=== PATIENT | female | born 1975 | race Two or more races ===

== ENCOUNTER 2023-06-03 02:12 | Outpatient (CLI) | payer MEDICAID | END 2023-06-03 23:59 | disposition critical access hospital (66) | LOC: EMS 02:12 | DX: R10.9 Unspecified abdominal pain (principal); R11.0 Nausea; R19.7 Diarrhea, unspecified | CPT/HCPCS: A0425; A0427; A0999 ==

== ENCOUNTER 2023-06-03 02:37 | Observation (INO) | payer MEDICAID ==
--- NOTE | 2023-06-03 03:27 | ED Physician Documentation ---
PD HPI NVD - Stated complaint Stated Complaint: ABD PX/NAUSEA - Chief complaint Chief Complaint: Abd Pain - History obtained from History obtained from: Patient - Additonal information Additional information: HPI from patient. Patient complains of nausea, vomiting, and diarrhea. This started at approximately 10 PM tonight without inciting event. She denies any pain including abdominal pain. Denies fever. Denies recent antibiotics. No recent travel. Review of Systems Constitutional: reports: Sweats. denies: Fever, Chills Cardiac: reports: Reviewed and negative Respiratory: reports: Reviewed and negative GI: reports: Nausea, Vomiting, Diarrhea. denies: Abdominal Pain, Constipation, Hematemesis, Bloody / black stool : denies: Dysuria, Frequency, Now EGA PD PAST MEDICAL HISTORY - Past Medical History Past Medical History: Yes Respiratory: Asthma Endocrine/Autoimmune: Type 2 diabetes Psych: Anxiety, Post traumatic stress disorder - Past Surgical History Past Surgical History: Yes General: Cholecystectomy, Other - Present Medications Home Medications: Ambulatory Orders Medication Instructions Recorded Confirmed Albuterol Sulfate [Proair 90 mcg IH Q4HR PRN 06/03/23 06/03/23 Respiclick] Alprazolam [Xanax] 0.5 mg PO DAILY 06/03/23 06/03/23 Atorvastatin Calcium 20 mg PO HS 06/03/23 06/03/23 Calcium Carbonate/Vitamin D3 1 tab PO BID 06/03/23 06/03/23 [Calcium 600 mg-Vit D3 10Mcg Tb] Escitalopram [Lexapro] 10 mg PO DAILY 06/03/23 06/03/23 Levothyroxine [Synthroid] 25 mcg PO QDAC 06/03/23 06/03/23 Liraglutide [Victoza 2-Juan F] 1.8 mg SQ DAILY 06/03/23 06/03/23 Montelukast Sodium 10 mg PO DAILY 06/03/23 06/03/23 Pioglitazone HCl [Actos] 30 mg PO DAILY 06/03/23 06/03/23 Prazosin [Minipress] 1 mg PO QPM 06/03/23 06/03/23 hydroCHLOROthiazide [Hydrodiuril] 12.5 mg PO DAILY 06/03/23 06/03/23 methocarbamoL [Methocarbamol] 750 mg PO Q6HR PRN 06/03/23 06/03/23 - Allergies Allergies/Adverse Reactions: Allergies Allergy/AdvReac Type Severity Reaction Status Date / Time ephedrine [From Tedral] Allergy Anaphylaxis Verified 06/03/23 03:01 phenobarbital [From Tedral] Allergy Anaphylaxis Verified 06/03/23 03:01 theophylline [From Tedral] Allergy Anaphylaxis Verified 06/03/23 03:01 ondansetron [From Zofran] AdvReac Itching Verified 06/03/23 03:01 - Social History Does the pt smoke?: No Smoking Status: Former smoker Does the pt drink ETOH?: No Substance Use and Type: Marijuana PD ED PE NORMAL - Vitals Vital signs reviewed: Yes - General General: Alert and oriented X 3, Well developed/nourished, Other (appears uncomfortable; she says she feels extremely nauseaus and repeatedly asking for medication to stop the nausea) - HEENT HEENT: Moist mucous membranes - Neck Neck: Supple, no meningeal sign - Cardiac Cardiac: RRR, No murmur - Respiratory Respiratory: No respiratory distress, Clear bilaterally - Abdomen Abdomen: Soft, Non tender, Non distended - Derm Derm: Normal color, Warm and dry Results - Vitals Vitals: Vital Signs - 24 hr 06/03/23 06/03/23 06/03/23 02:55 03:00 05:01 Temperature 35.6 C L Heart Rate 90 82 88 Respiratory 16 16 80 H Rate Blood Pressure 186/102 H 170/93 H 149/76 H O2 Saturation 97 94 92 06/03/23 06/03/23 06/03/23 05:52 06:31 07:48 Temperature 36.2 C L Heart Rate 87 93 90 Respiratory 16 16 20 Rate Blood Pressure 130/77 145/89 H 152/85 H O2 Saturation 98 97 97 Oxygen O2 Source Room air - Labs Labs: Laboratory Tests 06/03/23 06/03/23 06/03/23 03:42 03:42 03:53 WBC 14.1 H RBC 4.84 Hgb 14.2 Hct 43.5 MCV 89.9 MCH 29.3 MCHC 32.6 RDW 13.3 Plt Count 230 MPV 9.8 Neut # (Auto) 12.2 H Lymph # (Auto) 1.1 L [place] # (Auto) 0.7 Eos # (Auto) 0.1 Baso # (Auto) 0.0 Absolute Nucleated RBC 0.00 Nucleated RBC % 0.0 Sodium Potassium Chloride Carbon Dioxide Anion Gap BUN Creatinine Estimated GFR (MDRD) Glucose Calcium Total Bilirubin AST ALT Alkaline Phosphatase Total Protein Albumin Globulin Albumin/Globulin Ratio Lipase Urine Color YELLOW Urine Clarity CLEAR Urine pH 5.5 Ur Specific Crary >=1.030 H Urine Protein NEGATIVE Urine Glucose (UA) >=1000 H Urine Ketones 15 H Urine Occult Blood SMALL H Urine Nitrite NEGATIVE Urine Bilirubin NEGATIVE Urine Urobilinogen 0.2 (NORMAL) Ur Leukocyte Esterase NEGATIVE Urine RBC 0-5 Urine WBC 0-3 Ur Squamous Epith Cells MOD Squamous H Urine Bacteria Rare Ur Microscopic Review INDICATED Urine Culture Comments NOT INDICATED Urine HCG, Qual NEGATIVE Stl C. diff Tox B Gene NEGATIVE 06/03/23 03:53 WBC RBC Hgb Hct MCV MCH MCHC RDW Plt Count MPV Neut # (Auto) Lymph # (Auto) [place] # (Auto) Eos # (Auto) Baso # (Auto) Absolute Nucleated RBC Nucleated RBC % Sodium 136 Potassium 2.7 L Chloride 102 Carbon Dioxide 22 Anion Gap 12.0 BUN 13 Creatinine 0.8 Estimated GFR (MDRD) 77 L Glucose 221 H Calcium 9.3 Total Bilirubin 0.4 AST 13 ALT 16 Alkaline Phosphatase 80 Total Protein 7.3 Albumin 4.1 Globulin 3.2 Albumin/Globulin Ratio 1.3 Lipase 16 Urine Color Urine Clarity Urine pH Ur Specific Cr[place] Urine Protein Urine Glucose (UA) Urine Ketones Urine Occult Blood Urine Nitrite Urine Bilirubin Urine Urobilinogen Ur Leukocyte Esterase Urine RBC Urine WBC Ur Squamous Epith Cells Urine Bacteria Ur Microscopic Review Urine Culture Comments Urine HCG, Qual Stl C. diff Tox B Gene PD Medical Decision Making - ED course Complexity details: reviewed results, re-evaluated patient, considered differential, d/w patient ED course: Mild leukocytosis (WBC 14.1). Moderate hypokalemia (K 2.7). Mild hyperglycemia (glucose 221). Urine hCG negative. Patient is given 1 L normal saline IV, 25 mg IV Phenergan. To treat the hypokalemia, she is given 10 mEq of IV potassium chloride. On reevaluation, patient says she feels much improved after the Phenergan. On reexam, her abdomen remains nontender. I discussed the results with the patient. We discussed plan to discharge her home and I would be providing her prescription for Phenergan. Unfortunately, the floor was able to protect her discharge instructions, she again began to have vomiting. I thus reevaluated the patient, and she is requesting something again for her nausea and vomiting. Note that she was also given a dose of 2.5 mg IV droperidol during ED stay. She is also now requesting something for abdominal cramping pain. At this point, my shift has ended and thus I am turning the care of this patient over to the oncoming ED physician (Dr. Carpio). I have put in orders for 30mg IV toradol, another dose of Phenergan 25 mg IV, as well as another 1 L IV normal saline. I have also ordered 30 mL of Maalox p.o. and 10 mL of p.o. viscous lidocaine. Departure - Departure Forms: PCP List
[2023-06-03] MEDS ORDERED: PROMETHAZINE INJ 25 MG in SODIUM CHLORIDE 0.9% 50 ML IV STA ×3 (03:38→07:50)
[2023-06-03] MEDS ORDERED: SODIUM CHLORIDE 0.9% 1,000 ML IV STA ×2 (03:38→07:51)
[2023-06-03] MEDS ORDERED: PROMETHAZINE 25 MG/1 ML VIAL ONE (03:57)
[2023-06-03 04:11] LABS: GLUCOSE, URINE (UA) >=1000 mg/dL (NEGATIVE); KETONES,URINE (UA) 15 mg/dL (NEGATIVE); LEUKOCYTE ESTERASE, URINE NEGATIVE (NEGATIVE); NITRITE,URINE NEGATIVE (NEGATIVE); OCCULT BLOOD,URINE SMALL (NEGATIVE); PH,URINE 5.5 PH (5.0-7.5); PROTEIN,URINE NEGATIVE (NEGATIVE); UROBILINOGEN,URINE 0.2 (NORMAL) E.U./dL (NORMAL)
[2023-06-03 04:14] LABS: BASOPHILS % (AUTO) 0.1 %; EOSINOPHILS # (AUTO) 0.1 10^3/uL (0.0-0.7); EOSINOPHILS % (AUTO) 0.4 %; HCT - HEMATOCRIT 43.5 % (37.0-47.0); HGB - HEMOGLOBIN 14.2 g/dL (12.0-16.0); LYMPHOCYTES # (AUTO) 1.1 10^3/uL (1.5-3.5); LYMPHOCYTES % (AUTO) 7.5 %; MEAN CORPUSCULAR HEMOGLOBIN 29.3 pg (27.0-31.0); MEAN CORPUSCULAR HGB CONC 32.6 g/dL (32.0-36.0); MEAN CORPUSCULAR VOLUME 89.9 fL (81.0-99.0); MEAN PLATELET VOLUME 9.8 fL (7.9-10.8); MONOCYTES # (AUTO) 0.7 10^3/uL (0.0-1.0); MONOCYTES % (AUTO) 5.2 %; NEUTROPHILS # (AUTO) 12.2 10^3/uL (1.5-6.6); NEUTROPHILS % (AUTO) 86.2 %; PLT - PLATELET COUNT 230 10^3/uL (130-450); RED BLOOD COUNT 4.84 10^6/uL (4.20-5.40); RED CELL DISTRIBUTION WIDTH 13.3 % (12.0-15.0); WHITE BLOOD COUNT 14.1 x10^3/uL (4.8-10.8)
[2023-06-03] MEDS ORDERED: DROPERIDOL 5 MG/2 ML VIAL IVP STA (04:24)
[2023-06-03 04:33] LABS: BILIRUBIN,URINE NEGATIVE (NEGATIVE); CLARITY,URINE CLEAR (CLEAR); ICTOTEST,URINE NEGATIVE
[2023-06-03 04:38] LABS: BACTERIA,URINE Rare /HPF (None Seen); RBC,URINE 0-5 /HPF (0-5); SQUAMOUS EPITHELIAL CELL,UR MOD Squamous (<= Few); WBC,URINE 0-3 /HPF (0-5)
[2023-06-03 04:39] LABS: HCG UR QUAL NEGATIVE
[2023-06-03 05:19] LABS: ALBUMIN 4.1 g/dL (3.2-5.5); ALBUMIN/GLOBULIN RATIO 1.3 (1.0-2.2); BILIRUBIN,TOTAL 0.4 mg/dL (0.2-1.0); CALCIUM 9.3 mg/dL (8.5-10.3); CREATININE 0.8 mg/dL (0.6-1.3); POTASSIUM 2.7 mmol/L (3.5-4.5); TOTAL PROTEIN 7.3 g/dL (6.4-8.9)
[2023-06-03] MEDS ORDERED: POTASSIUM CHLOR 10 MEQ/100 ML 10 MEQ/100 ML BAG IV STA (05:30)
[2023-06-03] MEDS ORDERED: MAG HYDROX/AL HYDROX/SIMETH 30 ML UDC PO STA (07:50)
[2023-06-03] MEDS ORDERED: KETOROLAC 30 MG/ML VIAL IVP STA (07:51)
[2023-06-03] MEDS ORDERED: LIDOCAINE VISCOUS 2% 15 ML UDC MM STA (07:57)
[2023-06-03] MEDS ORDERED: LACTATED RINGERS 1,000 ML IV STA (10:56)
[2023-06-03] MEDS ORDERED: POTASSIUM CHLOR 10 MEQ/100 ML 10 MEQ/100 ML BAG IV ONE (10:57)
[2023-06-03] MEDS ORDERED: diphenhydrAMINE INJ 50 MG/ML VIAL IVP STA (10:58)
[2023-06-03] MEDS ORDERED: FAMOTIDINE 20 MG/2 ML VIAL IVP STA (11:25)
[2023-06-03] MEDS ORDERED: LORazepam 2 MG/ML VIAL IVP STA (11:58)
--- NOTE | 2023-06-03 14:16 | CT Report ---
PROCEDURE: ABDOMEN/PELVIS W INDICATIONS: intractable vomiting 12 horus CONTRAST: 100ml omni 300 TECHNIQUE: After the administration of intravenous contrast, 5 mm thick sections acquired from the diaphragms to the symphysis. 5 mm thick coronal and sagittal reformats were acquired. For radiation dose reducti on, the following was used: automated exposure control, adjustment of mA and/or kV according to irina ent size. COMPARISON: FINDINGS: Image quality: Excellent. Lung bases and heart: Unremarkable. Liver: No solid mass. Gallbladder and biliary tree: Gallbladder surgically absent. No biliary ductal dilatation. Spleen: No splenomegaly. Pancreas: No pancreatic ductal dilation. Adrenals: No adrenal nodule. Kidneys and ureters: No hydronephrosis. No renal cystic lesion which requires follow up. No solid mas s. Bowel and peritoneum: Gastric lap band is present. Moderate gastric distention No pathologic free flu id. Normal appendix. Lymph nodes: No central or retroperitoneal adenopathy. Vessels: No infrarenal aortic aneurysm. PELVIS Reproductive organs: Unremarkable. Bladder: No abnormal wall thickening, accounting for underdistension. Pelvic lymph nodes: No pelvic adenopathy by size criteria. Bones: No aggressive osseous abnormality. Other: No significant ventral or inguinal hernia. IMPRESSION: 1. Postsurgical sequelae. 2.Normal appendix. 3. Moderate gastric distention, possibly indicating gastric outlet junction. Endoscopy could be perfo rmed for further assessment, if clinically indicated. No further emergent imaging warranted at this t [facility]. Reviewed by: Joanna Bean MD on 06/03/2023 2:15 PM PDT Approved by: Joanna Bean MD on 06/03/2023 2:15 PM PDT Station ID: [id number]
[2023-06-03] MEDS ORDERED: SODIUM CHLORIDE FLUSH 0.9% 10 ML SYRINGE IVP PRN (15:50)
[2023-06-03] MEDS ORDERED: PROCHLORPERAZINE 25 MG SUPP PR PRN (15:50)
[2023-06-03] MEDS ORDERED: ACETAMINOPHEN 325 MG TABLET PO PRN (15:50)
--- NOTE | 2023-06-03 16:13 | HISTORY & PHYSICAL EXAMINATION ---
Chief Complaint - Chief Complaint Chief Complaint: Nausea, dry heaves, abdominal pain History of Present Illness - Admitted From Admitted From:: ED - History Obtained From History obtained from: Patient - History of Present Illness HPI Comment/Other: Casandra is a 47 year old female who underwent gastric band placement in 2010 in [place]. The port to the band stopped working 6 months after surgery and she has had no follow-up regarding her bariatric procedure or her weight since that time except for a nutritional consult 1-2 weeks ago. She has been in her normal state of usual health until after she ate a full meal at [facility] yesterday evening. She developed dry heaves and severe upper abdominal discomfort associated with waves of nausea. She came to the ED early this morning and was found to be dehydrated and with hypokalemia. Fluids, analgesics and potassium replacement were started but she did not improve. A CT scan of the abdomen was obtained and revealed gastric distension below the band which appeared intact and without slippage. I was asked to evaluate the patient and placed an NGT which decompressed the stomach and relieved her symptoms. The plan is to admit her to the surgery service in Observation status, continue NGT decompresion of the stomach, correct her electrolytes prior to discharge to home care. Casadnra lives with her SO in [place] and they are visiting [place] for the weekend. She has a PCP in [place] History - Past Medical History Respiratory: reports: Asthma Endocrine/Autoimmune: reports: Type 2 diabetes GI: reports: Other (Chronic nausea) Psych: reports: Anxiety, Post traumatic stress disorder MRSA Hx?: No - Past Surgical History General: reports: Cholecystectomy, Other (Gastric band placement 2010) - Family & Social History Living arrangement: At home Living Situation: With spouse/s.o. - Substance History Use: Uses substance without health or social issues: NONE Meds/Allgy - Home Medications Home Medications: Ambulatory Orders Medication Instructions Recorded Confirmed Albuterol Sulfate [Proair 90 mcg IH Q4HR PRN 06/03/23 06/03/23 Respiclick] Alprazolam [Xanax] 0.5 mg PO DAILY 06/03/23 06/03/23 Atorvastatin Calcium 20 mg PO HS 06/03/23 06/03/23 Calcium Carbonate/Vitamin D3 1 tab PO BID 06/03/23 06/03/23 [Calcium 600 mg-Vit D3 10Mcg Tb] Escitalopram [Lexapro] 10 mg PO DAILY 06/03/23 06/03/23 Levothyroxine [Synthroid] 25 mcg PO QDAC 06/03/23 06/03/23 Liraglutide [Victoza 2-Juan F] 1.8 mg SQ DAILY 06/03/23 06/03/23 Montelukast Sodium 10 mg PO DAILY 06/03/23 06/03/23 Pioglitazone HCl [Actos] 30 mg PO DAILY 06/03/23 06/03/23 Prazosin [Minipress] 1 mg PO QPM 06/03/23 06/03/23 hydroCHLOROthiazide [Hydrodiuril] 12.5 mg PO DAILY 06/03/23 06/03/23 methocarbamoL [Methocarbamol] 750 mg PO Q6HR PRN 06/03/23 06/03/23 - Allergies Allergies/Adverse Reactions: Allergies Allergy/AdvReac Type Severity Reaction Status Date / Time ephedrine [From Tedral] Allergy Anaphylaxis Verified 06/03/23 03:01 phenobarbital [From Tedral] Allergy Anaphylaxis Verified 06/03/23 03:01 theophylline [From Tedral] Allergy Anaphylaxis Verified 06/03/23 03:01 ondansetron [From Zofran] AdvReac Itching Verified 06/03/23 03:01 Review of Systems - Gastrointestinal Gastrointestinal: reports: Abdominal pain, Diarrhea, Nausea, Bloating - Psychiatric Psychiatric: reports: Anxiety Exam - Vital Signs Vital Signs: Vital Signs x48h Pulse Resp BP Pulse Ox 06/03/23 14:37 94 16 148/83 H 95 06/03/23 11:24 90 16 157/83 H 96 06/03/23 09:00 90 16 158/82 H 94 - Physical Exam General Appearance: positive: Mild distress, Moderate distress Eyes Bilateral: positive: Normal inspection, PERRL ENT: positive: ENT inspection nml, Pharynx nml Neck: positive: Nml inspection, Thyroid nml Respiratory: positive: Chest non-tender, No respiratory distress, Breath sounds nml Cardiovascular: positive: Regular rate & rhythm Peripheral Pulses: positive: 2+ Abdomen: positive: Other (Distended epigastric region before NGT - resolved a fter NGT placement; Palpable port left and lateral to the umbilicus) Skin: positive: Color nml, Warm Extremities: positive: Non-tender Neurologic/Psychiatric: positive: Oriented x3 Conclusion/Plan - Lab Results Fish Bones: 06/03/23 03:53 06/03/23 03:53 - Diagnostic Imaging Results Diagnostic Imaging Results: positive: Other (PHI angle 48 degrees. Band appears intact. The gastric dilation is below the band but the duodenum appears normal and patent) - Other Other Results/Comments: Assessment: 1) Acute gastric distension possibly related to gastroparesis (diabetes) - resolved with NGT 2) Hypokalemia - on-going treatment 3) NIDDM - on oral hypogylcemics; mildly hyperglycemic today 4) Asthma - currently asymptomatic; uses inhaler 5) PTSD - on medication Recommendation: 1) Admit to surgery service for continued NGT decompression 2) Consider oral erythomycin or reglan if the gastroparesis persists after the NGT is decompressed 3) Medical Hospitalist Consult for assistance in management of her medical pro blems (Asthma, Hyperglycemia, PTSD, Hypokalemia) 4) Discharge when electrolytes are balanced and she is tolerating clear liquids after NGT is removed. Alexy Pineda MD General Surgery Service
[2023-06-03] MEDS ORDERED: LACTATED RINGERS 2,000 ML ONE (16:26)
--- NOTE | 2023-06-03 16:32 | XRAY Report ---
PROCEDURE: No-Charge 1V Abdomen INDICATIONS: post NG tube placement - upright abd TECHNIQUE: 1 view of the abdomen were acquired. COMPARISON: Correlation is made with CT, 06/03/2023. FINDINGS: Surgical changes and devices: The tip of the gastric tube can be seen overlying the fundus of the st omach. A lap band can be seen. Bowel: No pneumoperitoneum. The bowel gas pattern is normal. Stool load within normal limits. Soft tissues: No masses; visualized solid organ contours appear normal in size. No suspicious abdom inal calcifications. Bones: No suspicious bony abnormalities. IMPRESSION: The tip of the gastric tube can be seen overlying the fundus of the stomach. Reviewed by: Morgan Montaño MD on 06/03/2023 3:30 PM YASMEEN Approved by: Morgan Montaño MD on 06/03/2023 3:30 PM YASMEEN Station ID: [id number]
[2023-06-03 16:33] LABS: CALCIUM 8.5 mg/dL (8.5-10.3); CREATININE 0.6 mg/dL (0.6-1.3); POTASSIUM 2.9 mmol/L (3.5-4.5)
[2023-06-03] MEDS ORDERED: iohexoL-300 100 ML VIAL IVP ONE (16:39)
[2023-06-03] MEDS ORDERED: ALBUTEROL 1 PUFF INH PRN (16:40)
--- NOTE | 2023-06-03 16:40 | CONSULTATION NOTE ---
Referring Provider Name of Referring Provider:: Dr. Edwin MD Consult Date: 06/03/23 Chief Complaint - Chief Complaint Chief Complaint: Nausea/Vomiting History of Present Illness - Admitted From Admitted From:: ED - History Obtained From History obtained from: ED chart, patient History - Past Medical History Cardiovascular: reports: Hypertension, High cholesterol Respiratory: reports: Asthma Endocrine/Autoimmune: reports: Type 2 diabetes, HyPOthyroidism (Post partial thyroidectomy) GI: reports: Other (Chronic nausea) Psych: reports: Anxiety, Post traumatic stress disorder MRSA Hx?: No - Past Surgical History General: reports: Cholecystectomy, Gastric surgery (Gastric band placement 2010), Other (Partial thyroidectomy) Ortho: reports: Carpal Tunnel surgery, Spine surgery (Spinal ablation) - Family & Social History Living arrangement: At home Living Situation: With spouse/s.o. - Substance History Use: Uses substance without health or social issues: Cannabis Meds/Allgy - Home Medications Home Medications: Ambulatory Orders Medication Instructions Recorded Confirmed Albuterol Sulfate [Proair 90 mcg IH Q4HR PRN 06/03/23 06/03/23 Respiclick] Alprazolam [Xanax] 0.5 mg PO DAILY 06/03/23 06/03/23 Atorvastatin Calcium 20 mg PO HS 06/03/23 06/03/23 Calcium Carbonate/Vitamin D3 1 tab PO BID 06/03/23 06/03/23 [Calcium 600 mg-Vit D3 10Mcg Tb] Escitalopram [Lexapro] 10 mg PO DAILY 06/03/23 06/03/23 Levothyroxine [Synthroid] 25 mcg PO QDAC 06/03/23 06/03/23 Liraglutide [Victoza 2-Juan F] 1.8 mg SQ DAILY 06/03/23 06/03/23 Montelukast Sodium 10 mg PO DAILY 06/03/23 06/03/23 Pioglitazone HCl [Actos] 30 mg PO DAILY 06/03/23 06/03/23 Prazosin [Minipress] 1 mg PO QPM 06/03/23 06/03/23 hydroCHLOROthiazide [Hydrodiuril] 12.5 mg PO DAILY 06/03/23 06/03/23 methocarbamoL [Methocarbamol] 750 mg PO Q6HR PRN 06/03/23 06/03/23 - Allergies Allergies/Adverse Reactions: Allergies Allergy/AdvReac Type Severity Reaction Status Date / Time ephedrine [From Tedral] Allergy Anaphylaxis Verified 06/03/23 03:01 phenobarbital [From Tedral] Allergy Anaphylaxis Verified 06/03/23 03:01 theophylline [From Tedral] Allergy Anaphylaxis Verified 06/03/23 03:01 ondansetron [From Zofran] AdvReac Itching Verified 06/03/23 03:01 Review of Systems - Ears, Nose & Throat Ears, Nose & Throat: reports: Other (C/O px from NGT) - Gastrointestinal Gastrointestinal: reports: Bloating - Psychiatric Psychiatric: reports: Anxiety - All Other Systems All Other Systems: reports: Reviewed and negative Exam - Vital Signs Reviewed Vital Signs: Yes Vital Signs: Vital Signs x48h Pulse Resp BP Pulse Ox 06/03/23 14:37 94 16 148/83 H 95 06/03/23 11:24 90 16 157/83 H 96 06/03/23 09:00 90 16 158/82 H 94 - Physical Exam General Appearance: positive: Alert, Other (Morbidly obese, ill-appearing, uncomfortable) Eyes Bilateral: positive: Normal inspection ENT: positive: Other (NGT in place, patent and draining) Neck: positive: Trachea midline, Other (Thyroidectomy scar) Respiratory: positive: Chest non-tender, No respiratory distress, Breath sounds nml Cardiovascular: positive: Regular rate & rhythm, No murmur Abdomen: positive: Nml bowel sounds, Tenderness, Other (Obese) Skin: positive: Color nml, No rash, Warm, Dry Extremities: positive: Non-tender, Nml appearance Neurologic/Psychiatric: positive: Oriented x3, Motor nml Conclusion/Plan - Problem List (1) Gastric distention Conclusion/Plan: Care directed via Dr. Edwin schultz/ general surgery team. Pt has NGT in place. Pt is NPO until decompression intervention has shown effective. (2) Hyponatremia Conclusion/Plan: This is hypovolemic hyponatremia d/t recent vomiting. Pt needs to be receiving IV NS for sodium correction. (3) Hypokalemia Conclusion/Plan: D/T recent vomiting history. Pt receiving LR w/ K+ infusion to replace deficiency. (4) DM type 2 (diabetes mellitus, type 2) Conclusion/Plan: Sliding scale insulin protocol ordered as pt is currently NPO. Will check Hgb A1c in the AM. (5) Hypothyroidism Conclusion/Plan: TSH level ordered to assess if this is a complicating factor in pt's care. (6) Asthma Conclusion/Plan: PRN albuterol inhaler ordered for asthma exacerbation. (7) Hypertension Conclusion/Plan: As pt is NPO w/ NGT, ordered PRN IV Hydralazine for hypertensive emergency management. (8) PTSD (post-traumatic stress disorder) Conclusion/Plan: PRN IV lorazepam Q2h ordered as she is currently NPO. Will resume her home PO medications when medically appropriate. (9) Cannabis use, uncomplicated Conclusion/Plan: Pt reports consuming medical grade cannabis daily. As this may be a contributing factor to her nausea/emesis symptoms, will recommend pt decrease frequency. (10) Morbid obesity with BMI of 45.0-49.9, adult Conclusion/Plan: This complicates all of her care and may prolong her hospitalization. - Lab Results Lab results reviewed: Yes Fish Bones: 06/03/23 03:53 06/03/23 16:14 - Diagnostic Imaging Results Diagnostic Imaging Results: positive: Final report reviewed (Abdominal CT)
[2023-06-03] MEDS ORDERED: hydrALAZINE INJ 20 MG/ML VIAL IVP PRN (16:41)
[2023-06-03] MEDS ORDERED: LORazepam 2 MG/ML VIAL IVP PRN (16:45)
[2023-06-03] MEDS ORDERED: DEXTROSE 5% 1,000 ML IV SCH (17:00)
[2023-06-03] MEDS: SODIUM CHLORIDE FLUSH 0.9% 10 ML SYRINGE IVP SCH (17:05)
[2023-06-03] MEDS: POTASSIUM CHLORIDE INJ 20 MEQ in LACTATED RINGERS 1,000 ML IV SCH (17:05)
[2023-06-03] MEDS: PHENOL THROAT SPRAY 177 ML MM PRN ×3 (17:30→22:39)
[2023-06-03] MEDS ORDERED: PROCHLORPERAZINE 10 MG/2 ML VIAL IVP PRN (17:31)
[2023-06-03] MEDS ORDERED: PHENOL THROAT SPRAY 177 ML MM ONE (17:35)
[2023-06-03] MEDS: INSULIN REGULAR HUMAN 300 UNIT/3 ML VIAL SUBQ SCH ×2 (18:41→19:11)
[2023-06-03] MEDS: HEPARIN 5,000 UNIT/ML VIAL SUBQ SCH (21:01)
--- NOTE | 2023-06-03 22:00 | ED Physician Documentation ---
ED Addendum - Addendum Addendum: 06/03/23 21:52 the patient continued with nausea and some vomiting of small emesis after change of shift. Given repeat doses of anti-emetic with improvement for short while. Attempted PO intake of some water and nibble of cracker. [place] okay short time then nausea and some emesis again. Upper abd with some tenderness but no guarding. Bowel sounds decreased. I talked with Hospitalist about OBS and request for CT scan. CT scan subsequently done and showing enlarged stomach with mostly air and some fluid. Gastric band noted at upper gastrum appearing in place. Enlarged stomach below that and then appears flluid/less cocmpressed at stomach outlet and into initial small intestine. This is well below the gastric band, so not a part of the outlet issue. CT reading was gastric band present and then gastric outlet obstruction. No other acute findings. Pt states gastric band surgery 2010 and has not had recent problems with it. [place] and does not have bariatric specialist here in [place]. The presentation of abrupt nausea vomtiing and diarrhea would be more c/w gastroenteritis rather than mechanical gastric outlet obstruction below baded area. Hospitalist felt it was more surgical based on CT report. I talked with Dr. Edwin main who came to see the patient. He felt the gastric band was not part of the current process. He placed NG tube in patient and was to place the pt in OBS for further care. Please see his consultation note for exact thought process and plan. Dispostion: Placed in Observation in stable condition Diagnosis: intractable nausea and vomiting diarrhea gastric distension diabetic gastroparesis status post remote gastric banding procedure hypokalemia 06/03/23 22:01
[2023-06-03] MEDS: BENZOCAINE/MENTHOL LOZENGE MM PRN (22:39)
[2023-06-04] MEDS: INSULIN REGULAR HUMAN 300 UNIT/3 ML VIAL SUBQ SCH ×3 (00:10→11:07)
[2023-06-04] MEDS: SODIUM CHLORIDE FLUSH 0.9% 10 ML SYRINGE IVP SCH ×2 (00:11→09:45)
[2023-06-04] MEDS: BENZOCAINE/MENTHOL LOZENGE MM PRN ×3 (00:20→07:00)
[2023-06-04] MEDS: POTASSIUM CHLORIDE INJ 20 MEQ in LACTATED RINGERS 1,000 ML IV SCH (01:38)
[2023-06-04 04:07] LABS: ADENOVIRUS F 40/41 Not Detected (Not Detected); ASTROVIRUS Not Detected (Not Detected); C DIFFICILE TOXIN A/B Not Detected (Not Detected); CAMPYLOBACTER Not Detected (Not Detected); CRYPTOSPORIDIUM Not Detected (Not Detected); CYCLOSPORA CAYETANENSIS Not Detected (Not Detected); ENTAMOEBA HISTOLYTICA Not Detected (Not Detected); ENTEROAGGREGATIVE E COLI Not Detected (Not Detected); ENTEROPATHOGENIC E COLI Not Detected (Not Detected); ENTEROTOXIGENIC E COLI Not Detected (Not Detected); GIARDIA LAMBLIA Not Detected (Not Detected); NOROVIRUS GI/GII Not Detected (Not Detected); PLESIOMONAS SHIGELLOIDES Not Detected (Not Detected); ROTAVIRUS A Not Detected (Not Detected); SALMONELLA Not Detected (Not Detected); SAPOVIRUS Not Detected (Not Detected); SHIGA-TOXIN-PRODUCING E COLI Not Detected (Not Detected); SHIGELLA/ENTEROINVASIVE E COLI Not Detected (Not Detected); VIBRIO Not Detected (Not Detected); VIBRIO CHOLERAE Not Detected (Not Detected); YERSINIA ENTEROCOLITICA Not Detected (Not Detected)
--- NOTE | 2023-06-04 06:59 | PROVIDER PROGRESS NOTE ---
Subjective - General Admit Date: 06/03/23 - Review of Systems Drain Type: NGT Drain Output Description: 400 ml All Other Systems: positive: Reviewed and negative - Other Other Information/Narrative: Casandra's preop abdominal discomfort and nausea have resolved. She is taking ice chips and the NGT output is most the melted ice. Objective - Patient Data Vital Signs: Vital Signs x48h Temp Pulse Resp BP Pulse Ox 06/04/23 03:10 99.0 F 78 16 103/50 L 94 06/04/23 00:05 98.8 F 87 16 104/52 L 92 Weight: Weight 06/02/23 06/03/23 06/04/23 23:59 23:59 22:59 Weight (kg) 125.5 kg Intake & Output: Intake and Output Totals x24h 06/02/23 06/03/23 06/04/23 23:59 23:59 22:59 Intake Total 3882 375 Output Total 500 900 Balance 3382 -525 - Lab Results Lab Results: 06/03/23 03:53 06/03/23 16:14 Other Lab Results: Lab Results x24hrs 06/04/23 06/04/23 06/04/23 Range/Units 05:13 05:13 00:06 Sodium (135-145) mmol/L Potassium (3.5-4.5) mmol/L Chloride (101-111) mmol/L Carbon Dioxide (21-32) mmol/L Anion Gap (6-13) BUN (6-20) mg/dL Creatinine (0.6-1.3) mg/dL Estimated GFR (MDRD) (>89) Glucose (74-104) mg/dL POC Whole Bld Glucose 107 H 106 H (70 - 100) mg/dL Calcium (8.5-10.3) mg/dL TSH 1.70 (0.34-5.60) uIU/mL Stl C. cayetanensis PCR (Not Detected) Stool Rotavirus A PCR (Not Detected) Stl Adenov F 40/41 PCR (Not Detected) Stool Astrovirus (PCR) (Not Detected) Stool Campylobacter PCR (Not Detected) Stl C. diff Tox A/B PCR (Not Detected) Stool Cryptosporidium PCR (Not Detected) Stl Sh Tox Pr E STEC PCR (Not Detected) Stool E coli O157 PCR (Not Detected) Stl Enterotoxigenic E PCR (Not Detected) Stool EPEC (PCR) (Not Detected) Stl E. histolytica PCR (Not Detected) Stool Giardia Lamblia PCR (Not Detected) Stl P. shigelloides PCR (Not Detected) Stool Salmonella PCR (Not Detected) Stool Sapovirus (PCR) (Not Detected) Stl Shigella/EIEC PCR (Not Detected) St Y.enterocolitica PCR (Not Detected) Stool Vibrio (PCR) (Not Detected) Stl Vibrio cholerae PCR (Not Detected) Stl Enteroaggr Ecoli PCR (Not Detected) Stl Norovirus GI/GII PCR (Not Detected) 06/03/23 06/03/23 06/03/23 Range/Units 18:19 16:14 03:42 Sodium 132 L (135-145) mmol/L Potassium 2.9 L (3.5-4.5) mmol/L Chloride 99 L (101-111) mmol/L Carbon Dioxide 23 (21-32) mmol/L Anion Gap 10.0 (6-13) BUN 6 (6-20) mg/dL Creatinine 0.6 (0.6-1.3) mg/dL Estimated GFR (MDRD) 107 (>89) Glucose 167 H (74-104) mg/dL POC Whole Bld Glucose 154 H (70 - 100) mg/dL Calcium 8.5 (8.5-10.3) mg/dL TSH (0.34-5.60) uIU/mL Stl C. cayetanensis PCR Not Detected (Not Detected) Stool Rotavirus A PCR Not Detected (Not Detected) Stl Adenov F 40/41 PCR Not Detected (Not Detected) Stool Astrovirus (PCR) Not Detected (Not Detected) Stool Campylobacter PCR Not Detected (Not Detected) Stl C. diff Tox A/B PCR Not Detected (Not Detected) Stool Cryptosporidium PCR Not Detected (Not Detected) Stl Sh Tox Pr E STEC PCR Not Detected (Not Detected) Stool E coli O157 PCR Not applicable (Not Detected) Stl Enterotoxigenic E PCR Not Detected (Not Detected) Stool EPEC (PCR) Not Detected (Not Detected) Stl E. histolytica PCR Not Detected (Not Detected) Stool Giardia Lamblia PCR Not Detected (Not Detected) Stl P. shigelloides PCR Not Detected (Not Detected) Stool Salmonella PCR Not Detected (Not Detected) Stool Sapovirus (PCR) Not Detected (Not Detected) Stl Shigella/EIEC PCR Not Detected (Not Detected) St Y.enterocolitica PCR Not Detected (Not Detected) Stool Vibrio (PCR) Not Detected (Not Detected) Stl Vibrio cholerae PCR Not Detected (Not Detected) Stl Enteroaggr Ecoli PCR Not Detected (Not Detected) Stl Norovirus GI/GII PCR Not Detected (Not Detected) - Current Medications Current Medications: Current Medications Generic Name Dose Route Start Last Admin Trade Name Freq PRN Reason Stop Dose Admin Heparin Sodium (Porcine) 5,000 unit 06/03/23 21:00 06/03/23 21:01 Heparin 5,000 Unit/Ml Vial SUBQ Not Given BID MURIEL Potassium Chloride 20 meq/ 1,010 mls @ 100 mls/hr 06/03/23 16:00 06/04/23 01:38 PST Lactated Ringer's IV 100 mls/hr .Q10H6M MURIEL Administration Dextrose 1,000 mls @ 0 mls/hr 06/03/23 17:00 06/04/23 00:11 D5w IV 30 mls/hr .Q0M MURIEL Administration TKO Insulin Human Regular 1 - 5 unit 06/03/23 18:00 06/04/23 05:35 Insulin Regular Human 300 Unit/3 Ml Vial SUBQ Not Given Q6HR MURIEL Protocol Pantoprazole Sodium 40 mg 06/04/23 07:00 06/04/23 06:41 Pantoprazole 40 Mg Vial IVP 40 mg QDAC MURIEL Administration Phenol/Menthol 2 sprays 06/03/23 17:26 06/03/23 22:39 Phenol Throat Wolsey 177 Ml MM 2 sprays Q2HR PRN Administration Throat Pain Sodium Chloride 10 ml 06/03/23 17:00 06/04/23 00:11 Sodium Chloride Flush 0.9% 10 Ml Syringe IVP 10 ml 0100,0900,1700 MURIEL Administration Throat Lozenges 1 lozenge 06/03/23 17:26 06/04/23 03:04 Benzocaine/Menthol Lozenge MM 1 lozenge Q2HR PRN Administration Throat pain - Physical Exam General Appearance: positive: No acute distress, Alert Eyes Bilateral: positive: Normal inspection Respiratory: positive: Breath sounds nml Cardiovascular: positive: Regular rate & rhythm Abdomen: positive: Non-tender, No distention, Other (Active BS) Skin: positive: Warm ABX Reporting Has patient been on IV antibiotics over the past 48 hours?: No Impression/Plan - Problem List Problem List: Assessment: 1) Gastric distension either due to dietary indiscretion or gastroparesis - clinically, her symptoms have resolved with NGT decompression 2) Hypokalemia - on supplementation and am labs pending 3) Diabetes - on sliding scale insulin 4) S/P gastric band placement (2010) with no follow-up. Her weight has increased since the procedure Plan: 1) Remove NGT and start clear liquids 2) Check potassium this morning. May need out-patient supplementation 3) If she tolerates the NGT removal and is able to take PO liquids, she can be discharged to home with the plan to follow-up with her PCP in [place], [place] for referral to a [facility]. Alexy Pineda MD General Surgery Service
[2023-06-04] MEDS ORDERED: PANTOPRAZOLE 40 MG VIAL IVP SCH (07:00)
[2023-06-04 07:11] LABS: CALCIUM 8.4 mg/dL (8.5-10.3); CREATININE 0.7 mg/dL (0.6-1.3); POTASSIUM 2.8 mmol/L (3.5-4.5)
--- NOTE | 2023-06-04 07:58 | DISCHARGE SUMMARY ---
"Discharge Summary Admit Date: 06/03/23 Discharge Date: 06/04/23 Discharging Provider: Edwin Code Status: Attempt Resuscitation Condition at Discharge: Good Discharge Disposition: 01 Home, Self Care - DIAGNOSES Admission Diagnoses: Acute gastric distension BMI 47.5 S/P lap band placement 2010 Diabetes Hypokalemia PTSD Discharge Diagnoses with Status of Each Condition: Acute gastric distension - resolved with NGT BMI 47.5 - Chronic condition S/P lap band placement 2010 - No treatment indicated Diabetes - Managed with sliding scale insulin Hypokalemia - potassium replacement PTSD - continued home meds - HPI History of Present Illness: Casandra is a 47 year old female who underwent gastric band placement in 2010 in [place]. The port to the band stopped working 6 months after surgery and she has had no follow-up regarding her bariatric procedure or her weight since that time except for a nutritional consult 1-2 weeks ago. She has been in her normal state of usual health until after she ate a full meal at [facility] yesterday evening. She developed dry heaves and severe upper abdominal discomfort associated with waves of nausea. She came to the ED early this morning and was found to be dehydrated and with hypokalemia. Fluids, analgesics and potassium replacement were started but she did not improve. A CT scan of the abdomen was obtained and revealed gastric distension below the band which appeared intact and without slippage. I was asked to evaluate the patient and placed an NGT whi ch decompressed the stomach and relieved her symptoms. The plan is to admit her to the surgery service in Observation status, continue NGT decompresion of the stomach, correct her electrolytes prior to discharge to home care. - CONSULTS | PROCEDURES Consultations: Medical Hospitalist - HOSPITAL COURSE Hospital Course: As soon as the NGT was placed in the ED, her nausea and abdominal discomfort resolved. I admitted her to keep the stomach empty with NGT decompression overnight so that it would regain it's normal tone. Her hypokalemia was treated with IV potassium supplementation. Her NGT was removed in the morning and she tolerated clear liquids. Her hypokalemia persisted and additional supplementation was ordered. The acute gastric distension has several possible etiologies. There is clear passage of air and liquid seen on the CT scan therefore mechanical gastric outlet obstruction is not one of the reasons. Her hypokalemia in combination with her diabetes may have led to a period of gastroparesis, the acute episode being successfully managed. She will be discharged on a clear liquid diet with a recommendation to be seen by her PCP in [place], [place] later this week. She likes bananas and can have these daily to maintain her potassium. Of concern is that she has had no follow-up after her bariatric surgery and continues to struggle with weight gain and diabetes which as mentioned earlier, likely contributed to the gastric distension. She tells me that she saw a manager radiation last week and hopefully her PCP can reinforce the need for improved dietary habits. - ALLERGIES Allergies/Adverse Reactions: Allergies Allergy/AdvReac Type Severity Reaction Status Date / Time ephedrine [From Tedral] Allergy Anaphylaxis Verified 06/03/23 03:01 phenobarbital [From Tedral] Allergy Anaphylaxis Verified 06/03/23 03:01 theophylline [From Tedral] Allergy Anaphylaxis Verified 06/03/23 03:01 ondansetron [From Zofran] AdvReac Itching Verified 06/03/23 03:01 - MEDICATIONS Home Medications: Ambulatory Orders Medication Instructions Recorded Confirmed Albuterol Sulfate [Proair 90 mcg IH Q4HR PRN 06/03/23 06/03/23 Respiclick] Alprazolam [Xanax] 0.5 mg PO DAILY 06/03/23 06/03/23 Atorvastatin Calcium 20 mg PO HS 06/03/23 06/03/23 Calcium Carbonate/Vitamin D3 1 tab PO BID 06/03/23 06/03/23 [Calcium 600 mg-Vit D3 10Mcg Tb] Escitalopram [Lexapro] 10 mg PO DAILY 06/03/23 06/03/23 Levothyroxine [Synthroid] 25 mcg PO QDAC 06/03/23 06/03/23 Liraglutide [Victoza 2-Juan F] 1.8 mg SQ DAILY 06/03/23 06/03/23 Montelukast Sodium 10 mg PO DAILY 06/03/23 06/03/23 Pioglitazone HCl [Actos] 30 mg PO DAILY 06/03/23 06/03/23 Prazosin [Minipress] 1 mg PO QPM 06/03/23 06/03/23 hydroCHLOROthiazide [Hydrodiuril] 12.5 mg PO DAILY 06/03/23 06/03/23 methocarbamoL [Methocarbamol] 750 mg PO Q6HR PRN 06/03/23 06/03/23 - PHYSICAL EXAM AT DISCHARGE General Appearance: positive: No acute distress, Alert Eyes Bilateral: positive: Normal inspection ENT: positive: Pharynx nml Neck: positive: Nml inspection Respiratory: positive: No respiratory distress, Breath sounds nml Cardiovascular: positive: Regular rate & rhythm Abdomen: positive: Non-tender, Nml bowel sounds, No distention Skin: positive: Color nml, Warm Extremities: positive: Nml appearance - LABS Result Diagrams: 06/03/23 03:53 06/04/23 05:13 - DIAGNOSTIC IMAGING Diagnostic Imaging Results: See rad report - QUALITY (Female Hip Fx Only) Was patient sent home on osteoporosis medication?: No - FOLLOW UP Follow Up: She is instructed to contact her PCP in [place], [place] for follow-up within 7-10 days - TIME SPENT Time Spent in Discharge (Minutes): 45"
--- NOTE | 2023-06-04 08:11 | Discharge Plan ---
Discharge Plan Problem Reviewed?: Yes Disposition: Home, Self Care Condition: Good Activity Restrictions: No Restrictions Shower Restrictions: No Driving Restrictions: No Health Concerns: 1) Diabetes 2) PTSD 3) Possible gastroparesis causing acute gastric dilation related to #1 4) BMI 47.5 after 2011 laparoscopic band procedure Plan of Treatment: Clear liquid diet until seen by PCP Follow advice regarding diet from your recent nutrition consultation Continue your home diabetes management Additional Instructions or Follow Up instructions: Follow up with your PCP in [place], [place] within 1-2 weeks No Smoking: If you smoke, Please STOP! Call for help.
[2023-06-04] MEDS: HEPARIN 5,000 UNIT/ML VIAL SUBQ SCH (09:44)
[2023-06-04] MEDS: POTASSIUM CHLOR 10 MEQ/100 ML 10 MEQ/100 ML BAG IV SCH ×4 (09:45→13:08)
[2023-06-04 10:21] LABS: ESTIMATED AVERAGE GLUCOSE 123 mg/dL (70-100); HEMOGLOBIN A1c% 5.9 % (4.27-6.07)
[2023-06-04 13:38] VITALS: BP 120/61; O2SAT 94
== END 2023-06-04 14:42 | disposition home or self-care (01) ==
LOC: ED 02:37 → MS2 15:51
PROVIDERS: ADMIT Surgery; ATTEND Surgery
DX: K31.0 Acute dilatation of stomach (principal); R11.2 Nausea with vomiting, unspecified; R19.7 Diarrhea, unspecified; E03.9 Hypothyroidism, unspecified; E11.43 Type 2 diabetes mellitus with diabetic autonomic (poly)neuropathy; K31.84 Gastroparesis; E87.6 Hypokalemia; J45.909 Unspecified asthma, uncomplicated; I10 Essential (primary) hypertension; E87.1 Hypo-osmolality and hyponatremia; F43.10 Post-traumatic stress disorder, unspecified; E66.01 Morbid (severe) obesity due to excess calories; Z68.42 Body mass index [BMI] 45.0-49.9, adult; Z98.84 Bariatric surgery status; Z87.891 Personal history of nicotine dependence; E86.0 Dehydration; F41.9 Anxiety disorder, unspecified; E11.65 Type 2 diabetes mellitus with hyperglycemia; Z79.4 Long term (current) use of insulin; E78.2 Mixed hyperlipidemia
CPT/HCPCS: 36415; 74018; 74177; 80048; 80053; 81001; 81025; 83036; 83690; 83735; 84443; 85025; 87493; 87507; 96365; 96366; 96367; 96375; 99285; A9270; G0378; J1200; J1815; J2060; J7040; J7120; Q9967; 81003; 87086